=== PATIENT | male | born 1990 | race Asian ===

== ENCOUNTER 2020-01-27 16:43 | Emergency (ER) | payer MEDICAID, OTHER ==
[~2020-01-27] VITALS: Ht 177.8 cm; Wt 83.9 kg
--- NOTE | 2020-01-27 17:40 | NUR ---
ED Nurse Note:pt. was BIBA from the street with c/o fever, general weakness, pt. ias A/Ox4 ambulatory with steady gait, blood and urine sent to labs given fluids, VSS
[2020-01-27 18:10] LABS: BASOPHILS % (AUTO) 1.7 % (0.0-2.0); EOSINOPHILS % (AUTO) 0.7 % (0.0-3.0); HEMOGLOBIN 15.2 G/DL (14.2-18.0); LYMPHOCYTES % (AUTO) 24.4 % (20.0-45.0); MEAN CORPUSCULAR VOLUME 95 FL (80-99); MONOCYTES % (AUTO) 4.7 % (1.0-10.0); NEUTROPHILS % (AUTO) 68.5 % (45.0-75.0); PLATELET COUNT 330 K/UL (150-450); RED BLOOD COUNT 4.75 M/UL (4.70-6.10); RED CELL DISTRIBUTION WIDTH 11.1 % (11.6-14.8); WHITE BLOOD COUNT 10.6 K/UL (4.8-10.8)
[2020-01-27 18:15] VITALS: BP 124/66
[2020-01-27 18:16] LABS: PARTIAL THROMBOPLASTIN TIME 28 SEC (23-33)
[2020-01-27 18:20] LABS: ANION GAP 10 mmol/L (5-15); BLOOD UREA NITROGEN 14 mg/dL (7-18); CALCIUM 8.5 MG/DL (8.5-10.1); CARBON DIOXIDE 27 MMOL/L (21-32); CHLORIDE 106 MMOL/L (98-107); CREATININE 0.9 MG/DL (0.55-1.30); POTASSIUM 3.4 MMOL/L (3.5-5.1); SODIUM 142 MMOL/L (136-145)
[2020-01-27 18:29] LABS: LACTATE DEHYDROGENASE 419 U/L (81-234)
[2020-01-27 18:38] LABS: APPEARANCE,URINE CLEAR; BILIRUBIN, URINE NEGATIVE (NEGATIVE); GLUCOSE, URINE (UA) NEGATIVE (NEGATIVE); KETONES,URINE NEGATIVE (NEGATIVE); LEUKOCYTE ESTERASE ,URINE 1+ (NEGATIVE); NITRITE,URINE NEGATIVE (NEGATIVE); PH,URINE 6 (4.5-8.0); PROTEIN,URINE 2+ (NEGATIVE); UROBILINOGEN,URINE 4 MG/DL (0.0-1.0)
[2020-01-27 18:38] LABS: ALANINE AMINOTRANSFERASE 48 U/L (12-78); ALBUMIN 4.1 G/DL (3.4-5.0); ALBUMIN/GLOBULIN RATIO 1.5 (1.0-2.7); ALKALINE PHOSPHATASE 51 U/L (46-116); ASPARTATE AMINO TRANSFERASE 62 U/L (15-37); BILIRUBIN,TOTAL 0.2 MG/DL (0.2-1.0); CKMB 26.9 NG/ML (0.0-3.6); FERRITIN 64 NG/ML (8-388)
[2020-01-27 18:45] LABS: COLOR,URINE YELLOW
--- NOTE | 2020-01-27 19:05 | NUR ---
ED Nurse Note: Report received from SHERIF Banegas. Pt is resting in bed. Will continue to monitor.
[2020-01-27] MEDS ORDERED: cefTRIAXone 1 GM in NS 55 ML IVPB ONE (19:15)
--- NOTE | 2020-01-27 19:16 | Emergency Room Report ---
History of Present Illness General Chief Complaint: Fever Source: Patient Present Illness HPI 29-year-old male with unknown psychiatric disorder brought in by paramedics due to fever, body aches, shortness of breath and believing that he definitely has COVID. 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 Denies abdominal pain diarrhea at this time. Denies any urinary symptoms. Denies chest pain, loss of taste smell. Has not taken medication for symptom relief. Denies any drug use. Allergies: Coded Allergies: No Known Allergies (Unverified , 01/27/20) COVID-19 Screening Contact w/high risk pt: No Experienced COVID-19 symptoms?: Yes COVID-19 Testing performed [employer] SERVICES SPECIALIST: No Patient History Past Medical History: see triage record Past Surgical History: unable to obtain Pertinent Family History: unable to obtain Reviewed Nursing Documentation: PMH: Agreed; PSxH: Agreed Nursing Documentation-PMH Past Medical History: No Stated History Review of Systems All Other Systems: negative except mentioned in HPI Physical Exam Vital Signs Date Time Temp Pulse Resp B/P (MAP) Pulse Ox O2 Delivery O2 Flow Rate FiO2 01/27/20 16:50 99.1 88 20 124/66 (85) 96 Room Air Sp02 EP Interpretation: reviewed, normal General Appearance: no apparent distress, alert, GCS 15, non-toxic Head: normocephalic, atraumatic Eyes: bilateral eye normal inspection, bilateral eye PERRL ENT: hearing grossly normal, normal pharynx, no angioedema, normal voice Neck: full range of motion, supple/symm/no masses Respiratory: chest non-tender, lungs clear, normal breath sounds, no rhonchi, no respiratory distress, no retraction, speaking full sentences Cardiovascular #1: normal inspection, no murmur Gastrointestinal: normal bowel sounds, non tender, soft, non-distended, no guarding, no rebound Rectal: deferred Genitourinary: no CVA tenderness Musculoskeletal: back normal, normal range of motion, no calf tenderness, calf tenderness, gait/station normal, non-tender Neurologic: alert, motor strength/tone normal, oriented x3, sensory intact, responsive, speech normal Psychiatric: judgement/insight normal Skin: no rash Lymphatic: no adenopathy Medical Decision Making PA Attestation All diagnoses and treatment plans were reviewed and discussed with my supervising physician Dr. Dudley Diagnostic Impression: Primary Impression: UTI (urinary tract infection) Additional Impression: Upper respiratory infection ER Course 29-year-old male with unknown psychiatric disorder brought in by paramedics due to fever, body aches, shortness of breath and believing that he definitely has COVID. 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 Denies abdominal pain diarrhea at this time. Denies any urinary symptoms. Denies chest pain, loss of taste smell. Has not taken medication for symptom relief. Denies any drug use. Ddx considered but are not limited to: bronchitis, PNA, URI viral, bacterial bronchitis, coronavirus Vital signs: are WNL, pt. is afebrile H&PE are most consistent with: Incidental finding of UTI, URI ORDERS: ER sepsis order set, LDH, d-dimer, ferritin, CRP, Motrin ED INTERVENTIONS: NS bolus, Rocephin DISCHARGE: At this time pt. is stable for d/c to home. Will provide printed patient care instructions, and any necessary prescriptions. Care plan and follow up instructions have been discussed with the patient prior to discharge. Patient to follow primary doctor, patient has admitted criteria to be tested for code at this time. Patient chest x-ray within normal limits and labs are within normal limits. 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 EKG Diagnostic Results Rate: normal Rhythm: NSR ST Segments: no acute changes Other Impression No acute ST changes Chest X-Ray Diagnostic Results Chest X-Ray Diagnostic Results : Chest X-Ray Ordered: Yes # of Views/Limited/Complete: 1 View Indication: Shortness of Breath EP Interpretation: Yes MICHAEL Xray: Interpretation reviewed, by supervising MD, and agrees with findings. Interpretation: no consolidation, no effusion, no pneumothorax Impression: No acute disease Electronically Signed by: Tony Acosta PA-C Last Vital Signs Date Time Temp Pulse Resp B/P (MAP) Pulse Ox O2 Delivery O2 Flow Rate FiO2 01/27/20 18:15 88 20 Room Air 01/27/20 18:15 99.1 124/66 96 Disposition: HOME, SELF-CARE Condition: Stable Scripts Ibuprofen* (MOTRIN*) 400 Mg Tablet 400 MG ORAL Q8H, #30 TAB 0 Refills Prov: Tony Waggoner 7/16/20 Referrals: NON PHYSICIAN (PCP) Patient Instructions: Fever, Adult, Urinary Tract Infection Additional Instructions: Follow-up with your primary care provider, take medication as directed, worsening symptoms return to the emergency room Tony Waggoner Jan 27, 2020 19:16
[2020-01-27] MEDS ORDERED: IBUPROFEN400 MG ORAL (19:17)
--- NOTE | 2020-01-27 19:25 | NUR ---
ED Nurse Note: IV antibx infusing at this time. NAD. Safety measures in place.
[2020-01-27 19:50] VITALS: BP 125/70
--- NOTE | 2020-01-27 19:50 | NUR ---
ER DISCHARGE NOTE: Patient is cleared to be discharged per ERMD, pt is aox4, on room air, with stable vital signs. pt was given dc and prescription instructions, pt was able to verbalize understanding, pt id band and iv site removed without complications. pt is able to ambulate with steady gait. pt took all belongings.
--- NOTE | 2020-01-28 10:43 | Diagnostic Imaging Report ---
Indication: Shortness of breath Technique: XRAY Chest 1v Comparison: 01/30/2012 Findings: Heart size and mediastinal contours are within normal limits for AP technique. There is no focal airspace consolidation, pneumothorax or pleural effusion. Osseous structures demonstrate no acute abnormality. Impression: No radiographic evidence of acute cardiopulmonary disease.
== END 2020-01-27 19:50 | disposition home or self-care (01) ==
LOC: EDBD 16:43 → EMR 16:55
DX: J06.9 Acute upper respiratory infection, unspecified (principal); N39.0 Urinary tract infection, site not specified
CPT/HCPCS: 36415; 71045; 80053; 81003; 82553; 82728; 83605; 83615; 84484; 85025; 85379; 85610; 85730; 86140; 87040; 93005; 96365; J0696; Z7502; 99284